=== PATIENT | female | born 1960 | race Caucasian/White ===

== ENCOUNTER 2019-12-01 02:30 | Emergency (ER) | payer SELFPAY ==
[~2019-12-01] VITALS: Ht 177.8 cm; Wt 136.1 kg
[2019-12-01 02:40] VITALS: BP 150/89
--- NOTE | 2019-12-01 02:48 | NUR ---
AMBULATED TO ER BED 3
--- NOTE | 2019-12-01 03:02 | NUR ---
XRAY AT BEDSIDE
--- NOTE | 2019-12-01 03:02 | NUR ---
Prashant obrien in [facility] - 12/01/19 at 0302 by [email or web address] XRAY AT BEDSIDE.
[2019-12-01] MEDS ORDERED: KETOROLAC 60 MG/2 ML VIAL IM ONE (03:05)
--- NOTE | 2019-12-01 03:05 | NUR ---
ERMD AT BEDSIDE.
--- NOTE | 2019-12-01 03:09 | NUR ---
PT HAS HAD SOB WITH A PRODUCTIVE COUGH OF WHITE PHLEGM X 3-4 WEEKS, COMING IN TONIGHT DUE TO DEVELOPING SEVERE SHARP PAIN TO HER LEFT RIBS UNDER BREAST. DENIES EVER HEARING OR FEELING A POP SENSATION WHILE COUGHING. NO BRUISING OR DEFORMITY NOTED. BILATERAL LUNG SOUNDS WITH INSPIRATORY AND EXPIRATORY WHEEZING. PT AFEBRILE, NO N/V/D. O2 SAT 99% ON RA. BED N LOWEST POSITION AND SIDERAIL UP X 1. PT ON BEDSIDE MONITOR. NKA HX - HTN, HLD
[2019-12-01 03:44] VITALS: BP 150/92
--- NOTE | 2019-12-01 03:53 | NUR ---
Patient discharged with v/s stable. Written and verbal after care instructions given and explained. Patient alert, oriented and verbalized understanding of instructions. Ambulatory with steady gait. All questions addressed prior to discharge. ID band removed. Patient advised to follow up with PMD. Rx of MOTRIN, NORCO, AND PREDNISONE given. Patient educated on indication of medication including possible reaction and side effects. Opportunity to ask questions provided and answered.
== END 2019-12-01 03:53 | disposition home or self-care (01) ==
LOC: MED 02:30
DX: R10.9 Unspecified abdominal pain (principal); R06.02 Shortness of breath; I10 Essential (primary) hypertension; Z85.9 Personal history of malignant neoplasm, unspecified
CPT/HCPCS: 71045; 96372; 99283; J1885; Q0092